=== PATIENT | female | born 1980 | race African-American/Black ===

== ENCOUNTER 2020-02-14 22:53 | Emergency (ER) | payer MEDICAID, SELFPAY ==
[2020-02-14 22:57] VITALS: BP 119/95; PULSE 106; RESP 22; TEMP 36.1; O2SAT 100
--- NOTE | 2020-02-14 23:04 | ED.ANXIETY ---
HPI - Anxiety General Chief Complaint: Anxiety Stated Complaint: panic attack Time Seen by Provider: 02/14/20 22:56 Source: patient Mode of arrival: ambulatory Limitations: no limitations History of Present Illness HPI narrative: Pt is a 39 y/o female who presents to the ED with c/o anxiety that started at 1500. Pt states she has a H/O anxiety and normally takes Lexapro. She notes that she has not been taking it because she has been having N/V/D. Although, she does note that she took it today. She reports ABD pain and palpitations that is consistent with her H/O anxiety. She reports chills, but denies fever, SI, or HI. Pt notes that she used to take Ativan and Xanax. complaint: anxiety Onset (ago): hour(s) (8) Symptoms: palpitations and other (ABD pain) Severity: similar to previous episodes History of similar episodes: Yes Relieving factors: nothing Associated symptoms: nausea/vomiting and other (chills, diarrhea, ABD pain, palpitations) Related Data Home Medications Medication Instructions Recorded Confirmed escitalopram oxalate 20 mg PO DAILY 09/30/19 09/30/19 Allergies Allergy/AdvReac Type Severity Reaction Status Date / Time latex Allergy Unknown RASH-CONDOM Verified 02/14/20 23:03 Review of Systems Review of Systems: All systems reviewed & are unremarkable except as noted in HPI and below Constitutional: Constitutional: Reports chills and Denies fever(s) Cardiovascular: Cardiovascular: Reports palpitations Gastrointestinal: Gastrointestinal: Reports abdominal pain, Reports diarrhea, Reports nausea and Reports vomiting Psychiatric: Psychiatric: Reports anxiety, Denies homicidal ideation and Denies suicidal ideation [facility] Social History Social History Smoking status: Never smoker Alcohol intake: current Gender identity (if verbalized by the patient): Female Exam Narrative: Exam Narrative: APPEARANCE: Anxious in appearance, resting in bed EYES: EOMI HEENT: Normocephalic, atraumatic, nares patent, oral mucosa dry no erythema or exudate posterior pharynx RESPIRATORY: No respiratory distress Clear to auscultation bilaterally with no rhonchi wheezing or rales. CARDIOVASCULAR: Regular rate and rhythm without murmurs rubs or gallops. ABDOMINAL: Soft, nontender, nondistended, no rebound or guarding MUSCULOSKELETAl: Moves all extremities. No clubbing, cyanosis or edema. NEURO: Awake and alert. Following commands, speech normal, no focal deficits SKIN:: Warm, dry. No rashes lesions or abrasions PSYCHIATRIC: Anxious in appearance, denies suicidal ideation, denies homicidal ideation Course Course Emergency Course: Patient states she is feeling much better at this time. Anxiety has resolved Discussed with patient results of workup and diagnosis. Discussed need for follow-up with primary care, proper use of medication, and reasons to return to the emergency department. Patient understands and agrees to current treatment plan Vital Signs Vital signs: Vital Signs Temperature 96.9 F L 02/14/20 22:57 Pulse Rate 106 H 02/14/20 22:57 Respiratory Rate 22 H 02/14/20 22:57 Blood Pressure 119/95 H 02/14/20 22:57 Pulse Oximetry 100 02/14/20 22:57 Temperature 96.9 F L 02/14/20 22:57 Pulse Rate 89 02/15/20 00:14 Respiratory Rate 16 02/15/20 00:14 Blood Pressure 117/63 02/15/20 00:14 Pulse Oximetry 100 02/15/20 00:14 MDM - Anxiety Lab Data Result diagrams: 02/14/20 23:36 02/14/20 23:36 Labs: Lab Results 02/14/20 02/14/20 02/14/20 Range/Units 23:36 23:36 23:36 WBC 6.3 (4.5-10.0) K/mm3 RBC 4.40 (4.2-5.4) M/mm3 Hgb 11.3 L (12.0-15.0) g/dL Hct 37.2 (37.0-47.0) % MCV 84.5 (80-100) fl MCH 25.7 L (26-34) pg MCHC 30.4 L (32-36) g/dl RDW 25.3 H (11.5-14.5) % Plt Count 358 (150-375) k/mm3 MPV 10.0 (7.4-10.4) fl Immature Gran % (Auto) 0.3 (0-0.5) % Ne
[2020-02-14] MEDS: LORAZEPAM INJ 2 MG/ML VIAL 1 MG IV PUSH (23:32)
[2020-02-14] MEDS: SODIUM CHLORIDE 0.9% IV 1,000 ML 999 ML IV CONT (23:32)
[2020-02-14] MEDS: ONDANSETRON INJ 4 MG/2 ML VIAL IV PUSH (23:32)
[2020-02-14 23:45] LABS: Basophils Percent Auto 0.3 % (0.2-1.2); Hematocrit 37.2 % (37.0-47.0); Hemoglobin 11.3 g/dL (12.0-15.0); Immature Granulocyte Absolute 0.02 K/mm3 (0.00-0.031); Immature Granulocyte Percent A 0.3 % (0-0.5); Lymphocytes Absolute Auto 0.69 K/mm3 (0.9-3.2); Mean Corpuscular HGB Conc 30.4 g/dl (32-36); Mean Corpuscular Hemoglobin 25.7 pg (26-34); Mean Corpuscular Volume 84.5 fl (80-100); Monocytes Absolute Auto 0.1 K/mm3 (0.1-0.6); Monocytes Percent Auto 2.1 % (2.6-8.5); Neutrophils Absolute Auto 5.4 K/mm3 (1.3-6.7); Neutrophils Percent Auto 86.3 % (45.5-73.1); Platelet Count Result 358 k/mm3 (150-375); Red Cell Distribution Width 25.3 % (11.5-14.5); White Blood Count 6.3 K/mm3 (4.5-10.0)
[2020-02-14 23:52] LABS: Add Urine Microscopic? YES; Appearance Urine Clear (Clear); Bilirubin Urine Negative (Negative); Blood Urine Negative (Negative); Color Urine Yellow (Yellow); Glucose Urine UA Negative (Negative); Ketones Urine 2+ mg/dL (Negative); Leukocyte Esterase Ur Negative LEU/UL (Negative); Mucus Urine Rare /lpf; Nitrate Urine Negative (Negative); Protein Urine 1+ mg/dL (Negative); RBC Urine 0-2 /hpf (0-2); Specific Grav Ur 1.017 (1.001-1.035); Squamous Epithelial Cell Urine Many /hpf (Few); Urobilinogen Urine Negative mg/dL (<2.0); WBC Urine 0-3 /hpf
[2020-02-15 00:04] LABS: Alanine Aminotransferase 13 U/L (4-35); Albumin Level 4.8 g/dL (3.5-5.1); Alkaline Phosphatase 57 U/L (38-126); Aspartate Amino Transferase 24 U/L (14-36); Bilirubin,Total 0.3 mg/dL (0.2-1.3); Blood Urea Nitrogen 6 mg/dL (7-17); Calcium 9.5 mg/dL (8.4-10.2); Carbon Dioxide 24 mmol/L (22-30); Chloride 102 mmol/L (98-107); Estimated CRCL calculation 101 ml/min; Estimated Glomerular Filt Rate > 60; Glucose 106 mg/dL (65-105); Lipase 36 U/L (23-300); Potassium 3.9 mmol/L (3.4-5.0); Sodium 137 mmol/L (137-145)
[2020-02-15] MEDS: SODIUM CHLORIDE 0.9% IV 1,000 ML 999 ML IV CONT (00:13)
[2020-02-15 00:14] VITALS: BP 117/63; PULSE 89; RESP 16; O2SAT 100
[2020-02-15 00:50] VITALS: BP 110/67; PULSE 98; RESP 17; TEMP 36.7; O2SAT 100
== END 2020-02-15 00:50 | disposition home or self-care (01) ==
PROVIDERS: Emergency Provider Emergency Medicine
DX: F41.9 Anxiety disorder, unspecified (principal); R11.2 Nausea with vomiting, unspecified
CPT/HCPCS: 36415; 80053; 81001; 81025; 83690; 85025; 96361; 96374; 96375; 99284; J2060; J2405; J7030

== ENCOUNTER 2020-08-18 06:11 | Emergency (ER) | payer OTHER, SELFPAY ==
--- NOTE | ~2020-08-18 | CT_ITS ---
EXAMINATION: CT abdomen pelvis w con DATE: 08/18/2020 08:55 INDICATION: Right flank and lower abdominal pain. Nausea. TECHNIQUE: Computed tomography (CT) of the abdomen and pelvis was performed with 100 cc Omnipaque 350 intravenous contrast. Automated exposure control and iterative reconstruction technique were employe d. Exam dose: 253.62 mGy-cm total exam DLP. COMPARISON: 09/30/2019 CT abdomen pelvis FINDINGS: The lung bases are clear. Normal heart size. No pericardial or pleural effusion. The liver, spleen, pancreas, and adrenal glands and kidneys appear normal. Normal caliber of the abdo alex aorta. No intraperitoneal or retroperitoneal or pelvic mass lesion or adenopathy or ascites. Normal appendix. No bowel obstruction, bowel wall thickening, pneumatosis or intraperitoneal free air . Uterine enlargement. There are multiple serosal fibroids, the largest measuring up to 4.7 cm dimensio n. There is an involuting peripherally enhancing approximately 2 cm left ovarian cyst. There is evidence of mild to moderate free fluid in the adnexal areas and cul-de-sac. The urinary bladder appears normal. Normal caliber of the abdominal aorta. No intraperitoneal or retroperitoneal or pelvic mass lesion or adenopathy or ascites. There is a fat-containing umbilical hernia. Included skeletal structures are unremarkable. IMPRESSION: Enlarged uterus, multiple serosal fibroids Involuting 2 cm left ovarian cyst with mild amount of free fluid in the adnexal areas and cul-de-sac Reviewed, dictated and finalized at [facility]. Reviewed, dictated and finalized at location B.
--- NOTE | ~2020-08-18 | XR_ITS ---
EXAMINATION: XR chest 2V DATE: 08/18/2020 08:23 INDICATION: Chest pain TECHNIQUE: PA and lateral views of the chest are obtained. COMPARISON: 01/05/2017 FINDINGS: The lungs are free of acute opacities. There is no pleural effusion or pneumothorax. The ca rdiomediastinal silhouette is normal. The visualized bones and soft tissues are unremarkable. IMPRESSION: 1. No acute cardiopulmonary abnormality. Reviewed, dictated and finalized at location A.
[2020-08-18 06:18] VITALS: BP 127/66; PULSE 79; RESP 16; TEMP 36.8; O2SAT 98
--- NOTE | 2020-08-18 06:30 | ECG_ITS ---
Measurements Intervals [place] Rate: 74 P: 60 [place]: 161 QRS: 29 QRSD: 80 T: 44 QT: 406 QTc: 451 Interpretive Statements SINUS RHYTHM BASELINE ARTIFACT- I, II, III, AVR, AVF NORMAL ECG Electronically Signed On 08-18-2020 7:00:35 CDT by Arias Singletary D.O.
[2020-08-18 06:42] LABS: Basophils Percent Auto 0.5 % (0.2-1.2); Eosinophils Absolute Auto 0.1 K/mm3 (0-0.3); Eosinophils Percent Auto 1.7 % (0-4.4); Hemoglobin 9.6 g/dL (12.0-15.0); Immature Granulocyte Absolute 0.01 K/mm3 (0.00-0.031); Immature Granulocyte Percent A 0.2 % (0-0.5); Lymphocytes Absolute Auto 1.47 K/mm3 (0.9-3.2); Lymphocytes Percent Auto 35.8 % (18.3-44.2); Mean Corpuscular Hemoglobin 29.9 pg (26-34); Mean Corpuscular Volume 93.5 fl (80-100); Mean Platelet Volume 11.1 fl (7.4-10.4); Monocytes Absolute Auto 0.1 K/mm3 (0.1-0.6); Monocytes Percent Auto 3.2 % (2.6-8.5); Neutrophils Absolute Auto 2.4 K/mm3 (1.3-6.7); Neutrophils Percent Auto 58.6 % (45.5-73.1); Platelet Count Result 372 k/mm3 (150-375); Red Blood Count 3.21 M/mm3 (4.2-5.4); Red Cell Distribution Width 22.9 % (11.5-14.5); White Blood Count 4.1 K/mm3 (4.5-10.0)
[2020-08-18 06:43] LABS: Add Urine Microscopic? NO; Appearance Urine Clear (Clear); Bilirubin Urine Negative (Negative); Blood Urine Negative (Negative); Color Urine Yellow (Yellow); Glucose Urine UA Negative (Negative); Ketones Urine Negative (Negative); Leukocyte Esterase Ur Negative LEU/UL (Negative); Nitrate Urine Negative (Negative); Protein Urine Negative (Negative); Specific Grav Ur 1.011 (1.001-1.035); Urobilinogen Urine Negative mg/dL (<2.0)
--- NOTE | 2020-08-18 06:57 | PC.NURSE ---
0645 Last from Xray comes to take patient for her chest xray, patient states I don't want that. I'm here for my reproductive system pain. Patient informed that she stated she was having cp and that was what the test was ordered for, patient still refused chest xray. ERP Dr. Oconnell notified.
[2020-08-18 07:02] LABS: Alanine Aminotransferase 15 U/L (4-35); Albumin Level 4.5 g/dL (3.5-5.1); Alkaline Phosphatase 48 U/L (38-126); Anion Gap 6 mmol/L (8-16); Aspartate Amino Transferase 29 U/L (14-36); Bilirubin,Total 0.4 mg/dL (0.2-1.3); Blood Urea Nitrogen 8 mg/dL (7-17); Carbon Dioxide 26 mmol/L (22-30); Chloride 107 mmol/L (98-107); Estimated Glomerular Filt Rate > 60; Glucose 110 mg/dL (65-105); Potassium 3.7 mmol/L (3.4-5.0); Sodium 139 mmol/L (137-145)
[2020-08-18 07:07] LABS: Partial Thromboplastin Time 27.9 SECONDS (22.3-36.8); Prothrombin Time 12.7 Seconds (11.1-14.7)
[2020-08-18 07:13] LABS: Troponin I 0.014 ng/mL (0.000-0.034)
[2020-08-18 07:33] LABS: Alanine Aminotransferase 15 U/L (4-35); Albumin Level 4.4 g/dL (3.5-5.1); Alkaline Phosphatase 48 U/L (38-126); Aspartate Amino Transferase 27 U/L (14-36); Bilirubin,Total 0.5 mg/dL (0.2-1.3); Lipase 85 U/L (23-300)
--- NOTE | 2020-08-18 07:36 | ED.CHESTPAIN ---
HPI - Chest Pain General Chief Complaint: Chest Pain Stated Complaint: lower abd & flank pain, de la o Time Seen by Provider: 08/18/20 07:09 History of Present Illness HPI narrative: She reports that she has been having problems in her reproductive area for awhile . She previously had an ovarian cyst removed. More recently she was seen by Dr. Lucas this past for a mass in her vaginal wall and vaginal discharge. She was prescribed Clindamycin cream, which she has not been able to pick-up yet. Additionally she states that she feels like these issues have begun causing problems in the other areas. She now has a headache, Sharp chest pain, and dyspnea on exertion. These have all been present for several days. She has not tried anything for her symptoms. Related Data Home Medications Medication Instructions Recorded Confirmed escitalopram oxalate 20 mg PO DAILY 09/30/19 09/30/19 Allergies Allergy/AdvReac Type Severity Reaction Status Date / Time latex Allergy Unknown RASH-CONDOM Verified 02/14/20 23:03 Review of Systems Review of Systems: All systems reviewed & are unremarkable except as noted in HPI and below Constitutional: Constitutional: Reports fatigue and Denies fever(s) ENT: Denies sore throat Cardiovascular: Cardiovascular: Reports chest pain and Denies radiating jaw, neck or arm pain Respiratory: Respiratory: Denies cough and Reports dyspnea Gastrointestinal: Gastrointestinal: Reports abdominal pain, Denies constipation, Denies diarrhea, Reports nausea and Denies vomiting Genitourinary: Genitourinary: Denies dysuria and Reports vaginal discharge Musculoskeletal: Musculoskeletal: Reports back pain Neurologic: Reports dizziness and Reports weakness PMFSH Past Medical History Medical History Anxiety Depression Ovarian cyst Surgical History Surgical History History of removal of ovarian cyst Family History Family History Father Diabetes mellitus Mother Diabetes mellitus Hypertension Grandparent Hypertension Social History Social History Smoking status: Never smoker Alcohol intake: current Gender identity (if verbalized by the patient): Female Exam Const: General: healthy appearing, no acute distress and alert Orientation/consciousness: patient oriented x3 HENMT: Head: normal to inspection Neck: Neck: normal visual inspection and no lymphadenopathy Chest: Chest palpation & inspection: no tenderness Resp: Effort & Inspection: normal respiratory effort Auscultation: clear to auscultation bilaterally, no rales, no rhonchi and no wheezes Cardio: Jugular venous distension: no JVD Rate: regular rate Rhythm: regular rhythm Heart sounds: no murmurs GI: Inspection: non-distended GI Palp: Yes Soft to palpation and No Tenderness to palpation present (GI) Other: Nontender Skin: General skin exam: normal color Neuro: General: patient oriented x3, moves all extremities, no focal motor deficits and CN's II-XI intact bilaterally Speech: normal speech Extrem: General: no edema Psych: Appearance: well kempt Affect: Anxious affect present Course Consultations Consultation #1: I discussed the patient with Dr. Lucas. He said that on exam she did have a mass adjacent to the uterus and he feels that the patient would benefit from an abdominal C. CT done and I called to update him with the results. He will follow-up with her in clinic on Tuesday to follow-up on the results. Vital Signs Vital signs: Vital Signs Temperature 36.8 C 08/18/20 06:18 Pulse Rate 79 08/18/20 06:18 Respiratory Rate 16 08/18/20 06:18 Blood Pressure 127/66 08/18/20 06:18 Pulse Oximetry 98 08/18/20 06:18 Temperature 36.8 C 08/18/20 06:18 Pulse Rate 67 08/18
[2020-08-18] MEDS: SODIUM CHLORIDE 0.9% IV 1,000 ML 999 ML IV CONT (08:14)
[2020-08-18] MEDS: KETOROLAC 30 MG/ML VIAL (*BKC) IV PUSH (08:14)
[2020-08-18 09:00] VITALS: BP 110/75; PULSE 67; RESP 18; O2SAT 99
[2020-08-18 10:10] LABS: Troponin I < 0.012 ng/mL (0.000-0.034)
== END 2020-08-18 10:34 | disposition home or self-care (01) ==
PROVIDERS: Emergency Medicine; Emergency Provider Emergency Medicine
DX: R07.9 Chest pain, unspecified (principal); D25.9 Leiomyoma of uterus, unspecified; N83.202 Unspecified ovarian cyst, left side
CPT/HCPCS: 36415; 71046; 74177; 80053; 80076; 81003; 81025; 82248; 83690; 84484; 85025; 85610; 85730; 93005; 96361; 96374; 99284; J1885; J7030; Q9967

== ENCOUNTER 2020-09-01 23:01 | Emergency (ER) | payer OTHER, SELFPAY ==
--- NOTE | ~2020-09-01 | XR_ITS ---
EXAMINATION: XR chest 2V EXAM DATE: 09/02/2020 00:02 INDICATION: Mid chest pain. TECHNIQUE: Frontal and lateral projections of the chest obtained and reviewed. Comparison is made to prior examination from 08/18/2020. FINDINGS: The lungs are clear. There are no pleural effusions. The cardiomediastinal silhouette is within normal limits. There is no pneumothorax suspected. The bones and soft tissues are unremarkab le. IMPRESSION: No acute cardiopulmonary findings. Reviewed, dictated and finalized at location G.
[2020-09-01 23:03] VITALS: BP 131/80; PULSE 115; RESP 17; TEMP 36.3; O2SAT 98
--- NOTE | 2020-09-01 23:21 | PC.NURSE ---
ON 09/01/2020 AT APPROX 2315, THIS PT APPROACHES THIS INTAKE NURSE AND ASKS HOW LONG SHE WILL HAVE TO WAIT. PT INFORMED THAT THE MAIN ED IS CURRENTLY FULL, AND THERE ARE A OTHER PEOPLE IN THE WAITING ROOM WELL WAITING TO BE SEEN. THIS INTAKE NURSE INFORMS PT THAT AN EXACT WAIT TIME CANNOT BE GIVEN. PT STATES SHE WILL BE WAITING ON THE BENCH IN THE BREEZEWAY TO THE ED ENTRANCE.
--- NOTE | 2020-09-01 23:35 | ECG_ITS ---
Measurements Intervals [place] Rate: 117 P: 50 NM: 156 QRS: 21 QRSD: 78 T: 50 QT: 337 QTc: 471 Interpretive Statements SINUS TACHYCARDIA FREQUENT VENTRICULAR PREMATURE COMPLEXES BASELINE ARTIFACT- II, III, AVF ABNORMAL ECG Electronically Signed On 09-02-2020 6:58:09 CDT by Arias Singletary D.O.
--- NOTE | 2020-09-01 23:35 | PC.NURSE ---
PT APPROACHED INTAKE NURSES DESK AGAIN AND STATES SHE IS NOW HAVING CP. CP PROTOCOL INITIATED IN [place].
--- NOTE | 2020-09-01 23:54 | PC.NURSE ---
PT TAKEN TO RADIOLOGY VIA ED W/C BY WIRE ANNEALERLeeann ALFRED AT THIS TIME.
[2020-09-01 23:56] LABS: Basophils Percent Auto 0.3 % (0.2-1.2); Eosinophils Percent Auto 0.1 % (0-4.4); Hematocrit 26.6 % (37.0-47.0); Hemoglobin 8.6 g/dL (12.0-15.0); Immature Granulocyte Absolute 0.02 K/mm3 (0.00-0.031); Immature Granulocyte Percent A 0.3 % (0-0.5); Lymphocytes Absolute Auto 1.42 K/mm3 (0.9-3.2); Mean Corpuscular HGB Conc 32.3 g/dl (32-36); Mean Corpuscular Hemoglobin 30.9 pg (26-34); Mean Corpuscular Volume 95.7 fl (80-100); Mean Platelet Volume 10.1 fl (7.4-10.4); Monocytes Absolute Auto 0.1 K/mm3 (0.1-0.6); Neutrophils Absolute Auto 5.5 K/mm3 (1.3-6.7); Neutrophils Percent Auto 77.3 % (45.5-73.1); Nucleated Red Blood Cells Perc 0.3 % (0.0-0.2); Platelet Count Result 430 k/mm3 (150-375); Red Blood Count 2.78 M/mm3 (4.2-5.4); White Blood Count 7.1 K/mm3 (4.5-10.0)
[2020-09-02 00:06] LABS: Prothrombin Time 12.9 Seconds (11.1-14.7)
[2020-09-02 00:07] LABS: Partial Thromboplastin Time 26.2 SECONDS (22.3-36.8)
[2020-09-02 00:08] LABS: Anion Gap 10 mmol/L (8-16); Blood Urea Nitrogen 8 mg/dL (7-17); Carbon Dioxide 26 mmol/L (22-30); Chloride 100 mmol/L (98-107); Estimated CRCL calculation 80 ml/min; Estimated Glomerular Filt Rate > 60; Glucose 127 mg/dL (65-105); Potassium 3.7 mmol/L (3.4-5.0); Sodium 136 mmol/L (137-145)
[2020-09-02 00:20] LABS: Troponin I < 0.012 ng/mL (0.000-0.034)
--- NOTE | 2020-09-02 02:00 | PC.NURSE ---
09/02/2020 AT 0159; PT CALLED TO HAVE VITAL SIGNS RETAKEN, PT DID NOT ANSWER, AND WAS NOT VISUALIZED IN ED WR OR BREEZEWAY BY THIS NURSE.
--- NOTE | 2020-09-02 02:21 | PC.NURSE ---
PT CALLED 3 TIMES IN ED WR TO BE TAKEN BACK TO ROOM IN MAIN ED. NO ANSWER BY THIS PT. PT BEING CHARTED A LWBS AT THIS TIME.
== END 2020-09-02 02:21 | disposition left against medical advice (07) ==
PROVIDERS: Emergency Provider General Practice; PCP Internal Medicine
DX: F41.0 Panic disorder [episodic paroxysmal anxiety] (principal)
CPT/HCPCS: 36415; 71046; 80048; 84484; 85025; 85610; 85730; 93005; 99199

== ENCOUNTER 2020-09-22 00:12 | Outpatient (CLI) | payer OTHER, SELFPAY ==
[2020-09-22 19:58] LABS: SARS-CoV-2 RNA PCR Negative
== END 2020-09-22 00:13 | disposition home or self-care (01) ==
LOC: ANHCOVIDDT 00:12
PROVIDERS: PCP Internal Medicine; Visit Provider Obstetrics & Gynecology
DX: Z01.812 Encounter for preprocedural laboratory examination (principal); Z20.828 Contact with and (suspected) exposure to other viral communicable diseases
CPT/HCPCS: 87635; C9803; U0003

== ENCOUNTER 2020-09-24 02:55 | Day surgery (SDC) | payer OTHER, SELFPAY ==
[2020-09-15 10:32] VITALS: BMI 22.8
--- NOTE | 2020-09-23 14:09 | WPDANESEPPF ---
Anes - Initial Pre Proc Eval Procedure: Operation Date: 09/24/20 09:00 Proposed Procedures p Excision Vaginal Cyst - Bandar Lucas MD Date/Time: 09/23/20 14:09 Surgeon: Bandar Lucas MD Pre Op Diagnosis: vaginal cyst Patient Data Age: 40 Gender: F Height: 1.65 m Weight: 62.14 kg Allergies Allergy/AdvReac Type Severity Reaction Status Date / Time latex Allergy Unknown RASH-CONDOM Verified 09/15/20 10:33 Home Medications Medication Instructions Recorded Confirmed Type escitalopram oxalate 20 mg PO DAILY 09/30/19 09/15/20 History Vitamin C 1 tablet PO 3XW 09/15/20 09/15/20 History iron 1 tablet PO 3XW 09/15/20 09/15/20 History vitamin E 1 cap PO 3XW 09/15/20 09/15/20 History Patient hx anesthesia problems: none Family hx anesthesia problems: none PMFSH Past Medical History Medical History (Updated 08/19/20 @ 00:00 by Eliu Edwards) Anxiety Depression Ovarian cyst Surgical History Surgical History History of removal of ovarian cyst Family History Family History Father Diabetes mellitus Mother Diabetes mellitus Hypertension Grandparent Hypertension Social History Social History Smoking status: Never smoker Alcohol intake: current Drinks per week: 2 Substance use: former Substance use type: marijuana Last use: 06/2020 Gender identity (if verbalized by the patient): Female Spiritual care concerns: No Anes - Eval Final PreProcedure Day of Procedure 09/23/20 14:09 Patient weight: normal Heart: regular rate and rhythm Lungs: clear to auscultation and normal air movement Airway: Mallampati scale class II Neurological: alert and oriented Last oral intake: >/= 8 hours ASA classification: II Emergent: no Anesthetic plan: proceed Anesthesia type and monitoring: general GIVS and LMA Informed Consent: The patient's anesthetic plan and its attendant risks and benefits were discussed with the patient/family/POA. Questions were solicited and answers provided to the satisfaction of the patient/family/POA.
[2020-09-24] VITALS (8 sets, daily range): BP systolic 95–110; BP diastolic 56–66; PULSE 62–73; RESP 12–17; TEMP 36.5; O2SAT 95–100
[2020-09-24] MEDS: ACETAMINOPHEN 500 MG TABLET 1000 MG PO (07:50)
[2020-09-24] MEDS: LACTATED RINGERS 1,000 ML 30 ML IV CONT ×2 (08:00→10:15)
[2020-09-24] MEDS: MIDAZOLAM HCL (*CRX) 2 MG/2 ML VIAL 1 MG IV PUSH (08:12)
--- NOTE | 2020-09-24 09:02 | WPDHPUPDATE1 ---
History and Physical Update Update Date/Time: 09/24/20 09:02 History and Physical has been reviewed, including an updated exam of the patient. There are NO changes in the patient's condition. Risks, benefits, and alternatives have been discussed and questions answered. Patient agrees to proceed with procedure.
[2020-09-24] MEDS: KETOROLAC 15 MG/ML VIAL (*BKC) IV PUSH (09:04)
[2020-09-24] MEDS: fentaNYL CITRATE INJ (*CRX) 100 MCG/2 ML VIAL 25 MCG IV PUSH ×4 (10:53→11:33)
--- NOTE | 2020-09-24 11:13 | SUR.PHASEI ---
DR. DICK HERE TO SPEAK TO PT. DR. DICK ATTEMPTED TO REACH MOM WITHOUT SUCCESS. WILL TRY TO REACH GRANDMOTHER.
[2020-09-24] MEDS: oxyCODONE HCL (*CRX) 5 MG TAB IR PO (12:25)
--- NOTE | 2020-09-24 12:58 | SUR.PHASEII ---
[id number] pt wanting explaination of procedure,called dr red and given explaination of procedure .pt no happy with explaination and plans to talk to dr red.
--- NOTE | 2020-09-25 09:27 | P.OP_ITS ---
Procedure Note - Detailed Date of procedure: 09/24/20 Pre-op diagnosis: vaginal cyst Uterine fibroids, pelvic pain, vulvar cyst Post-op diagnosis: same ( severe diverticulosis, partial rectal obstruction) Procedure performed: diagnostic laparoscopy, vulvar cyst resection , resection of peritoneal lesion Description of procedure: The patient was taken the operating room. She was prepped and draped in the dorsal lithotomy position after induction of general anesthesia. A 5 mm left upper quadrant incision was made in the abdominal skin with a scalpel. A 5 mm trocar was inserted the intra-abdominal cavity under direct visualization of the scope. A 5 mm left lower quadrant incision was made with the scalp on the abdominal skin and a 5 mm trocar was inserted the intra- abdominal cavity under direct visualization of the scope. A 5 mm infraumbilical incision was made with scalpel and a 5 mm trocar was inserted into the intra- abdominal cavity under direct visualization of the scope. pelvis and lower abdomen were examined in the below findings were noted. Some inclusion cyst in the peritoneal posterior cul-de-sac were resected with scissors. These were taken out to the trocars and sent for pathology evaluation. The pelvis was irrigated with copious amounts of normal saline. The pneumoperitoneum was reduced. The trocars were removed. the vaginal portion of the procedure was started. a lesion in the left introitus of the vagina was resected. The skin was incised over the left introitus posteriorly. It was about a 2.5 cm incision. Sharp and blunt dissection were then used to excise the cyst. The stalk of the cyst was clamped and cut After was ligated with 3 0 Vicryl. The skin was closed with interrupted 3 0 Vicryl. The procedure was terminated. The patient was taken recovery room stable condition. Sponge lap and needle counts were correct x2. Anesthesia: GETA Surgeon: Bandar Lucas MD Estimated blood loss (mL): 20 Drains: No Packing: No Complications: No immediate complications Condition: stable Disposition: PACU Findings: There was multiple large uterine fibroids. Three of which were projecting posteriorly directly into the rectum that. To obstruct the rectum partially. There was multiple diverticuli proximal to the posterior cul-de-sac fibroids which were very prominent. There was a left adnexal myoma. There were small cystic lesions in the posterior cul-de-sac. There was no vaginal cyst at the apex of the vagina. This was the posterior fibroids projecting into the vagina at the apex of the vagina.
== END 2020-09-24 13:04 | disposition home or self-care (01) ==
PROVIDERS: Visit Provider Obstetrics & Gynecology
PROC: (CPT 58662; principal; 2020-09-24 09:00)
DX: N90.7 Vulvar cyst (principal); R10.2 Pelvic and perineal pain; D25.9 Leiomyoma of uterus, unspecified; K66.8 Other specified disorders of peritoneum; F41.8 Other specified anxiety disorders; F12.90 Cannabis use, unspecified, uncomplicated
CPT/HCPCS: 58662; 11421; 88305; A9270; J0330; J1885; J2250; J2405; J2704; J3010; J7120

== ENCOUNTER 2020-10-20 17:06 | Emergency (ER) | payer OTHER, SELFPAY ==
[2020-10-20 17:09] VITALS: BP 113/58; PULSE 82; RESP 17; TEMP 36.2; O2SAT 100
--- NOTE | 2020-10-20 17:47 | ED.GENADULT ---
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 Patient denies any heavy vaginal bleeding discharge urinary symptoms. Patient presents with normal gait in no distress Related Data Home Medications Medication Instructions Recorded Confirmed escitalopram oxalate 20 mg PO DAILY 09/30/19 09/24/20 Vitamin C 1 tablet PO 3XW 09/15/20 09/24/20 iron 1 tablet PO 3XW 09/15/20 09/24/20 vitamin E 1 cap PO 3XW 09/15/20 09/24/20 Allergies Allergy/AdvReac Type Severity Reaction Status Date / Time latex Allergy Unknown RASH-CONDOM Verified 10/20/20 17:12 Review of Systems Review of Systems: All systems reviewed & are unremarkable except as noted in HPI and below PMFSH Past Medical History Medical History (Updated 10/20/20 @ 19:09 by Modesto Orozco PA-C) Anxiety Depression Ovarian cyst Surgical History Surgical History History of removal of ovarian cyst Family History Family History Father Diabetes mellitus Mother Diabetes mellitus Hypertension Grandparent Hypertension Social History Social History Smoking status: Never smoker Alcohol intake: current Drinks per week: 2 Substance use: former Substance use type: marijuana Last use: 06/2020 Gender identity (if verbalized by the patient): Female Spiritual care concerns: No Exam Narrative: Exam Narrative: GENERAL: Well-appearing, well-nourished, and in no acute distress. HEAD: Normocephalic, atraumatic. EYES: PERRLA and EOMI. ENT: Nares clear, no rhinorrhea or epistaxis. Mucous membranes moist. NECK: Supple. No adenopathy or masses. CHEST: Clear to auscultation. No respiratory distress. No wheezes rales or rhonchi HEART: Regular rate and rhythm. No murmur heard. Normal peripheral pulses. ABDOMEN: Soft, nontender, nondistended EXTREMITIES: Normal range of motion. No edema. SKIN: Warm, dry, no rash. NEURO: No focal deficits. Alert and oriented x3. Motor and sensory intact and symmetrical in the extremities. Cranial nerves II through XII grossly intact. Normal speech and gait PSYCH: Normal mood and affect. Course Course Emergency Course: Patient evaluated in the emergency department to include blood work which was unremarkable in the room in no distress hemodynamically stable felt appropriate for outpatient reevaluation Vital Signs Vital signs: Vital Signs Temperature 97.1 F L 10/20/20 17:09 Pulse Rate 82 10/20/20 17:09 Respiratory Rate 17 10/20/20 17:09 Blood Pressure 113/58 L 10/20/20 17:09 Pulse Oximetry 100 10/20/20 17:09 Temperature 97.1 F L 10/20/20 17:09 Pulse Rate 82 10/20/20 17:09 Respiratory Rate 17 10/20/20 17:09 Blood Pressure 113/58 L 10/20/20 17:09 Pulse Oximetry 100 10/20/20 17:09 Medical Decision Making [facility] Narrative Medical decision making narrative: Patient in the room at this time no distress no high risk changes in the blood work will be discharged home given primary care and neurology follow-up for her paresthesias likely secondary to her chronic anxiety however for ruling out other organic causes she will be referred for further testing
[2020-10-20 17:59] LABS: Add Urine Microscopic? YES; Appearance Urine Clear (Clear); Bilirubin Urine Negative (Negative); Blood Urine 1+ (Negative); Color Urine Straw (Yellow); Glucose Urine UA Negative (Negative); Ketones Urine Negative (Negative); Leukocyte Esterase Ur Negative LEU/UL (Negative); Mucus Urine Rare /lpf; Nitrate Urine Negative (Negative); Protein Urine Negative (Negative); Specific Grav Ur 1.008 (1.001-1.035); Squamous Epithelial Cell Urine Occasional /hpf (Few); Urobilinogen Urine Negative mg/dL (<2.0); WBC Urine 0-3 /hpf
[2020-10-20 18:12] LABS: Amphetamine Screen Urine Negative (Negative); Barbiturate Screen Urine Negative (Negative); Benzodiazepines Screen Urine Negative (Negative); Cannabinoid Screen Urine Negative (Negative); Cocaine Screen Urine Negative (Negative); Methadone Screen Urine Negative (Negative); Opiate Screen Urine Negative (Negative); Phencyclidine Screen Urine Negative (Negative)
[2020-10-20 18:13] LABS: Basophils Percent Auto 0.6 % (0.2-1.2); Eosinophils Absolute Auto 0.1 K/mm3 (0-0.3); Eosinophils Percent Auto 2.2 % (0-4.4); Hematocrit 33.7 % (37.0-47.0); Hemoglobin 10.7 g/dL (12.0-15.0); Lymphocytes Absolute Auto 1.15 K/mm3 (0.9-3.2); Lymphocytes Percent Auto 32.1 % (18.3-44.2); Mean Corpuscular HGB Conc 31.8 g/dl (32-36); Mean Corpuscular Hemoglobin 31.8 pg (26-34); Mean Corpuscular Volume 100.3 fl (80-100); Monocytes Absolute Auto 0.1 K/mm3 (0.1-0.6); Monocytes Percent Auto 1.4 % (2.6-8.5); Neutrophils Absolute Auto 2.3 K/mm3 (1.3-6.7); Neutrophils Percent Auto 63.7 % (45.5-73.1); Platelet Count Result 377 k/mm3 (150-375); Red Blood Count 3.36 M/mm3 (4.2-5.4); Red Cell Distribution Width 22.8 % (11.5-14.5); White Blood Count 3.6 K/mm3 (4.5-10.0)
[2020-10-20] MEDS: KETOROLAC (*BKC) 60 MG/2 ML VIAL IM (18:15)
[2020-10-20 18:18] LABS: Anion Gap 8 mmol/L (8-16); Blood Urea Nitrogen 10 mg/dL (7-17); Calcium 9.6 mg/dL (8.4-10.2); Carbon Dioxide 28 mmol/L (22-30); Chloride 105 mmol/L (98-107); Estimated CRCL calculation 77 ml/min; Estimated Glomerular Filt Rate > 60; Glucose 87 mg/dL (65-105); Potassium 3.8 mmol/L (3.4-5.0); Sodium 141 mmol/L (137-145)
[2020-10-20 18:35] LABS: Platelet Estimate Increased (Adequate)
[2020-10-20 18:36] LABS: Anisocytosis 3+ (NORMAL); Hypochromasia 1+ (NORMAL)
[2020-10-20 19:18] VITALS: BP 94/56; PULSE 67; RESP 16; TEMP 36.9; O2SAT 100
== END 2020-10-20 19:25 | disposition home or self-care (01) ==
PROVIDERS: Emergency Medicine Emergency Medical Services; Emergency Provider Emergency Medicine; PCP Obstetrics & Gynecology
DX: R20.2 Paresthesia of skin (principal); F41.9 Anxiety disorder, unspecified; F32.9 Major depressive disorder, single episode, unspecified
CPT/HCPCS: 36415; 80048; 80307; 81001; 81025; 85025; 96372; 99283; J1885

== ENCOUNTER 2020-11-12 08:41 | Emergency (ER) | payer OTHER, MEDICAID, SELFPAY ==
[2020-11-12] VITALS (7 sets, daily range): BP systolic 97–113; BP diastolic 64–83; PULSE 73–89; RESP 14–26; TEMP 36.8; O2SAT 98–100
[2020-11-12] MEDS: ONDANSETRON INJ 4 MG/2 ML VIAL IV PUSH (09:02)
[2020-11-12] MEDS: LORazepam INJ (*CRX) 2 MG/ML VIAL 1 MG IV PUSH (09:04)
[2020-11-12] MEDS: SODIUM CHLORIDE 0.9% IV 1,000 ML 999 ML IV CONT ×2 (10:01→11:28)
[2020-11-12] MEDS: FAMOTIDINE 20 MG/2 ML VIAL IV PUSH (10:01)
[2020-11-12 10:20] LABS: Eosinophils Percent Auto 0.5 % (0-4.4); Hematocrit 29.8 % (37.0-47.0); Hemoglobin 9.5 g/dL (12.0-15.0); Immature Granulocyte Absolute 0.02 K/mm3 (0.00-0.031); Immature Granulocyte Percent A 0.5 % (0-0.5); Lymphocytes Absolute Auto 0.75 K/mm3 (0.9-3.2); Lymphocytes Percent Auto 17.6 % (18.3-44.2); Mean Corpuscular HGB Conc 31.9 g/dl (32-36); Mean Corpuscular Hemoglobin 32.1 pg (26-34); Mean Corpuscular Volume 100.7 fl (80-100); Mean Platelet Volume 9.9 fl (7.4-10.4); Monocytes Absolute Auto 0.1 K/mm3 (0.1-0.6); Monocytes Percent Auto 1.2 % (2.6-8.5); Neutrophils Absolute Auto 3.4 K/mm3 (1.3-6.7); Neutrophils Percent Auto 80.2 % (45.5-73.1); Platelet Count Result 290 k/mm3 (150-375); Red Blood Count 2.96 M/mm3 (4.2-5.4); Red Cell Distribution Width 22.5 % (11.5-14.5); White Blood Count 4.3 K/mm3 (4.5-10.0)
[2020-11-12 10:29] LABS: Ovalocytes 2+ (NORMAL); Platelet Estimate Adequate (Adequate); Tear Drop Cells 1+ (NORMAL)
[2020-11-12 10:30] LABS: Anisocytosis 1+ (NORMAL)
[2020-11-12 10:35] LABS: Alanine Aminotransferase 33 U/L (4-35); Albumin Level 4.6 g/dL (3.5-5.1); Alkaline Phosphatase 54 U/L (38-126); Anion Gap 9 mmol/L (8-16); Aspartate Amino Transferase 60 U/L (14-36); Bilirubin,Total 0.9 mg/dL (0.2-1.3); Blood Urea Nitrogen 7 mg/dL (7-17); Calcium 9.5 mg/dL (8.4-10.2); Carbon Dioxide 27 mmol/L (22-30); Chloride 105 mmol/L (98-107); Estimated CRCL calculation 84 ml/min; Estimated Glomerular Filt Rate > 60; Glucose 93 mg/dL (65-105); Lipase 40 U/L (23-300); Potassium 4.2 mmol/L (3.4-5.0); Sodium 141 mmol/L (137-145)
[2020-11-12 11:02] LABS: Add Urine Microscopic? YES; Appearance Urine Cloudy (Clear); Bacteria Urine Trace /hpf; Bilirubin Urine Negative (Negative); Blood Urine Negative (Negative); Color Urine Yellow (Yellow); Glucose Urine UA Negative (Negative); Ketones Urine Negative (Negative); Leukocyte Esterase Ur Negative LEU/UL (Negative); Mucus Urine Rare /lpf; Nitrate Urine Negative (Negative); Protein Urine Negative (Negative); Squamous Epithelial Cell Urine Few /hpf (Few); Urobilinogen Urine Negative mg/dL (<2.0); WBC Urine 0-3 /hpf
--- NOTE | 2020-11-12 12:15 | ED.NAVMDI ---
HPI - Nausea/Vomiting/Diarrhea General Chief complaint: Nausea/Vomiting/Diarrhea Stated complaint: ANXIETY/N/V/BODY ACHES Time Seen by Provider: 11/12/20 09:06 Source: patient Mode of arrival: ambulatory Limitations: no limitations History of Present Illness HPI Narrative: Patient a 40-year-old female who presents to emergency department for evaluation of vomiting diarrhea runny nose for the last 2 days patient also notes panic attack this morning was brought in by EMS in acute anxious state patient notes vomiting diarrhea but denies sick contacts or other complaints lives at home by herself patient denies any rectal bleeding patient on arrival noting continued nausea Related Data Home Medications Medication Instructions Recorded Confirmed clindamycin phosphate VAGINAL 11/12/20 clonazepam 11/12/20 escitalopram oxalate mg 11/12/20 gabapentin 11/12/20 hydroxyzine HCl 11/12/20 Allergies Allergy/AdvReac Type Severity Reaction Status Date / Time latex Allergy Unknown RASH-CONDOM Verified 11/12/20 10:29 Review of Systems Review of Systems: All systems reviewed & are unremarkable except as noted in HPI and below PMFSH Past Medical History Medical History (Updated 11/12/20 @ 12:19 by Modesto Orozco PA-C) Anxiety Depression Ovarian cyst Surgical History Surgical History History of removal of ovarian cyst Family History Family History Father Diabetes mellitus Mother Diabetes mellitus Hypertension Grandparent Hypertension Social History Social History Smoking status: Never smoker Alcohol intake: current Drinks per week: 2 Substance use: former Substance use type: marijuana Last use: 06/2020 Gender identity (if verbalized by the patient): Female Spiritual care concerns: No Exam Narrative: Exam Narrative: GENERAL: Ill-appearing, well-nourished, and in no acute distress. HEAD: Normocephalic, atraumatic. EYES: PERRLA and EOMI. ENT: Nares clear, no rhinorrhea or epistaxis. Mucous membranes moist. NECK: Supple. No adenopathy or masses. CHEST: Clear to auscultation. No respiratory distress. No wheezes rales or rhonchi HEART: Regular rate and rhythm. No murmur heard. Normal peripheral pulses. ABDOMEN: Soft, no epigastric tenderness no rebound or guarding, nondistended EXTREMITIES: Normal range of motion. No edema. SKIN: Warm, dry, no rash. NEURO: No focal deficits. Alert and oriented x3. Cranial nerves II through XII grossly intact PSYCH: Normal mood and affect. Course Course Emergency Course: Patient in the room in no distress aware of case findings treatment plan diagnosis felt appropriate for outpatient reevaluation hydrated 2 L in the ER no vomiting diarrhea in the ER no high risk changes in the blood work minimal tenderness of the abdomen on exam will be treated symptomatically on an outpatient basis given reasons to return patient had improvement with medications and is tolerating p.o. intake Vital Signs Vital signs: Vital Signs Temperature 98.2 F 11/12/20 08:39 Pulse Rate 89 11/12/20 08:39 Respiratory Rate 14 11/12/20 08:39 Blood Pressure 109/72 11/12/20 08:39 Pulse Oximetry 100 11/12/20 08:39 Temperature 98.2 F 11/12/20 08:39 Pulse Rate 75 11/12/20 12:04 Respiratory Rate 18 11/12/20 12:04 Blood Pressure 100/64 11/12/20 12:04 Pulse Oximetry 98 11/12/20 12:04 MDM - Nausea/Vomiting/Diarrhea MDM Narrative Medical decision making narrative: Patient in the room in no distress with improved condition with medication patient is nontoxic-appearing no distress felt appropriate for outpatient reevaluation given reasons to return and felt appropriate to be managed on an outpatient basis on this time Differential Diagnosis Differential diagnosis: Likely food poisoning a
== END 2020-11-12 12:40 | disposition home or self-care (01) ==
PROVIDERS: Emergency Medicine Emergency Medical Services; Emergency Provider Emergency Medicine
DX: R10.9 Unspecified abdominal pain (principal); F41.9 Anxiety disorder, unspecified; F32.9 Major depressive disorder, single episode, unspecified
CPT/HCPCS: 36415; 80053; 81001; 81025; 83690; 85025; 96361; 96374; 96375; 99284; J2060; J2405; J7030

== ENCOUNTER 2020-11-20 16:27 | Emergency (ER) | payer OTHER, MEDICAID, SELFPAY ==
[2020-11-20 16:26] VITALS: BP 103/53; PULSE 92; RESP 20; TEMP 36.3; O2SAT 100
--- NOTE | 2020-11-20 16:45 | ED.ABDPAIN ---
HPI - Abdominal Pain General Chief Complaint: Abdominal Pain Stated Complaint: ABD PAIN/GONZALEZ Source: patient and EMS Limitations: no limitations History of Present Illness HPI narrative: Patient is a 40-year-old who presents with abdominal pain and nausea began today with history of anxiety similar occurrences in the past denies any acute illness or other complaints and otherwise resting comfortably on arrival in no distress patient has not had anything for symptoms Related Data Home Medications Medication Instructions Recorded Confirmed clindamycin phosphate VAGINAL 11/12/20 clonazepam 11/12/20 escitalopram oxalate mg 11/12/20 gabapentin 11/12/20 hydroxyzine HCl 11/12/20 Allergies Allergy/AdvReac Type Severity Reaction Status Date / Time latex Allergy Unknown RASH-CONDOM Verified 11/20/20 16:32 Review of Systems Review of Systems: All systems reviewed & are unremarkable except as noted in HPI and below PMFSH Past Medical History Medical History (Updated 11/20/20 @ 19:16 by Modesto Orozco PA-C) Anxiety Depression Ovarian cyst Surgical History Surgical History History of removal of ovarian cyst Family History Family History Father Diabetes mellitus Mother Diabetes mellitus Hypertension Grandparent Hypertension Social History Social History Smoking status: Never smoker Alcohol intake: current Drinks per week: 2 Substance use: former Substance use type: marijuana Last use: 06/2020 Gender identity (if verbalized by the patient): Female Spiritual care concerns: No Exam Narrative: Exam Narrative: GENERAL: Well-appearing, well-nourished, and in no acute distress. HEAD: Normocephalic, atraumatic. EYES: PERRLA and EOMI. ENT: Nares clear, no rhinorrhea or epistaxis. Mucous membranes moist. Oropharynx without tonsillar hypertrophy exudate or other lesions. NECK: Supple. No adenopathy or masses. No carotid bruits or JVD CHEST: Clear to auscultation. No respiratory distress. No wheezes rales or rhonchi HEART: Regular rate and rhythm. No murmur heard. Normal peripheral pulses. ABDOMEN: Soft, nontender, nondistended EXTREMITIES: Normal range of motion. No edema. SKIN: Warm, dry, no rash. NEURO: No focal deficits. Alert and oriented x3. PSYCH: Normal mood and affect. Course Course Emergency Course: Patient in the room in no distress aware of case findings treatment plan and diagnosis agreeing to follow with primary care and gynecology patient was hydrated will be sent home with medications is resting comfortably feeling improved at this time patient Vital Signs Vital signs: Vital Signs Temperature 97.4 F L 11/20/20 16:26 Pulse Rate 92 11/20/20 16:26 Respiratory Rate 20 11/20/20 16:26 Blood Pressure 103/53 L 11/20/20 16:26 Pulse Oximetry 100 11/20/20 16:26 Temperature 97.4 F L 11/20/20 16:26 Pulse Rate 72 11/20/20 18:21 Respiratory Rate 20 11/20/20 18:21 Blood Pressure 101/55 L 11/20/20 18:21 Pulse Oximetry 100 11/20/20 18:21 MDM - Abdominal Pain MDM Narrative Medical decision making narrative: Patient with abdominal pain and anxiety will be discharged home for further evaluation by primary care and GI and gynecology patient felt appropriate for outpatient reevaluation afebrile nontoxic-appearing no distress without emesis Differential Diagnosis Differential diagnosis: Likely abdominal pain, acute appendicitis, calculus of kidney, constipation, diverticulitis, endometriosis, gastroenteritis, pancreatitis and small bowel obstruction Lab Data Result diagrams: 11/20/20 17:44 11/20/20 17:44 Labs: Lab Results 11/20/20 11/20/20 11/20/20 Range/Units 17:44 17:44 17:44 WBC 2.7 L (4.5-10.0) K/mm3 RBC 2.55 L (4.2-5.4) M/mm3 Hgb
[2020-11-20] MEDS: SODIUM CHLORIDE 0.9% IV 1,000 ML 999 ML IV CONT ×2 (16:49→18:35)
[2020-11-20] MEDS: ONDANSETRON INJ 4 MG/2 ML VIAL IV PUSH (16:50)
[2020-11-20] MEDS: LORazepam INJ (*CRX) 2 MG/ML VIAL 1 MG IV PUSH (16:50)
[2020-11-20] MEDS: FAMOTIDINE 20 MG/2 ML VIAL IV PUSH (16:50)
[2020-11-20 17:53] LABS: Basophils Percent Auto 0.4 % (0.2-1.2); Eosinophils Percent Auto 0.4 % (0-4.4); Hematocrit 26.1 % (37.0-47.0); Hemoglobin 8.4 g/dL (12.0-15.0); Immature Granulocyte Absolute 0.04 K/mm3 (0.00-0.031); Immature Granulocyte Percent A 1.5 % (0-0.5); Immature Platelet Fraction Pct 6.4 % (0.9-11.2); Lymphocytes Absolute Auto 0.93 K/mm3 (0.9-3.2); Lymphocytes Percent Auto 34.8 % (18.3-44.2); Mean Corpuscular HGB Conc 32.2 g/dl (32-36); Mean Corpuscular Hemoglobin 32.9 pg (26-34); Mean Corpuscular Volume 102.4 fl (80-100); Monocytes Absolute Auto 0.1 K/mm3 (0.1-0.6); Neutrophils Absolute Auto 1.6 K/mm3 (1.3-6.7); Neutrophils Percent Auto 59.9 % (45.5-73.1); Nucleated Red Blood Cells Perc 0.7 % (0.0-0.2); Platelet Count Result 214 k/mm3 (150-375); Red Blood Count 2.55 M/mm3 (4.2-5.4); Red Cell Distribution Width 21.3 % (11.5-14.5); White Blood Count 2.7 K/mm3 (4.5-10.0)
[2020-11-20 17:57] LABS: Add Urine Microscopic? YES; Appearance Urine Clear (Clear); Bilirubin Urine Negative (Negative); Blood Urine 3+ (Negative); Color Urine Yellow (Yellow); Glucose Urine UA Negative (Negative); Ketones Urine 2+ mg/dL (Negative); Leukocyte Esterase Ur Trace LEU/UL (Negative); Mucus Urine Few /lpf; Nitrate Urine Negative (Negative); Protein Urine 1+ mg/dL (Negative); RBC Urine >75 /hpf (0-2); Specific Grav Ur 1.028 (1.001-1.035); Squamous Epithelial Cell Urine Rare /hpf (Few); Urobilinogen Urine Negative mg/dL (<2.0)
[2020-11-20 18:04] LABS: Alanine Aminotransferase 31 U/L (4-35); Albumin Level 4.8 g/dL (3.5-5.1); Alkaline Phosphatase 57 U/L (38-126); Anion Gap 8 mmol/L (8-16); Aspartate Amino Transferase 59 U/L (14-36); Bilirubin,Total 1.1 mg/dL (0.2-1.3); Blood Urea Nitrogen 11 mg/dL (7-17); Calcium 9.1 mg/dL (8.4-10.2); Carbon Dioxide 28 mmol/L (22-30); Chloride 103 mmol/L (98-107); Estimated CRCL calculation 78 ml/min; Estimated Glomerular Filt Rate > 60; Glucose 89 mg/dL (65-105); Lipase 100 U/L (23-300); Potassium 3.5 mmol/L (3.4-5.0); Sodium 139 mmol/L (137-145)
[2020-11-20 18:21] VITALS: BP 101/55; PULSE 72; RESP 20; O2SAT 100
[2020-11-20 19:30] VITALS: BP 103/59; PULSE 72; RESP 16; O2SAT 100
== END 2020-11-20 19:35 | disposition home or self-care (01) ==
PROVIDERS: Emergency Medicine Emergency Medical Services; Emergency Provider Emergency Medicine
DX: R10.9 Unspecified abdominal pain (principal); F41.9 Anxiety disorder, unspecified; F32.9 Major depressive disorder, single episode, unspecified
CPT/HCPCS: 36415; 80053; 81001; 81025; 83690; 85025; 85055; 87077; 87086; 87088; 96361; 96374; 96375; 99284; J2060; J2405; J7030

== ENCOUNTER 2020-11-25 13:58 | Emergency (ER) | payer MEDICAID, SELFPAY ==
[2020-11-25 13:57] VITALS: BP 123/81; PULSE 92; RESP 16; O2SAT 100
--- NOTE | 2020-11-25 14:06 | ED.GENADULT ---
HPI - General Adult General Chief complaint: Unspecified Stated complaint: left side pain Source: patient History of Present Illness HPI narrative: Patient is a 40 y/o female complaining of left side body pain including both her left arm and left leg for at least 1 month. She describes her pain as aching and sharp. She rates her pain as 8/10. She is able to move all 4 extremities and ambulate without difficulty. There is no alleviating or exacerbating factor. She also has subjective bilateral foot swelling. She states that anxiety is making her swelling worse. Related Data Home Medications Medication Instructions Recorded Confirmed clindamycin phosphate VAGINAL 11/12/20 clonazepam 11/12/20 escitalopram oxalate mg 11/12/20 gabapentin 11/12/20 hydroxyzine HCl 11/12/20 Allergies Allergy/AdvReac Type Severity Reaction Status Date / Time latex Allergy Unknown RASH-CONDOM Verified 11/20/20 16:32 Review of Systems Constitutional: Constitutional: Denies chills, Denies fever(s), Denies headache(s) and Denies weakness Eyes: Eyes: Denies blurry vision ENT: Denies headache(s) and Denies neck pain Cardiovascular: Cardiovascular: Denies chest pain and Denies dyspnea Respiratory: Respiratory: Denies cough and Denies dyspnea Gastrointestinal: Gastrointestinal: Denies abdominal pain, Denies diarrhea, Denies nausea and Denies vomiting Genitourinary: Genitourinary: Denies hematuria and Denies dysuria Musculoskeletal: Musculoskeletal: Reports as per HPI, Denies back pain, Reports myalgias and Denies neck pain Comments: feet swelling Neurologic: Denies headache(s) and Denies weakness [facility] Past Medical History Medical History (Updated 11/26/20 @ 00:00 by [facility]) Anxiety Depression Ovarian cyst Surgical History Surgical History History of removal of ovarian cyst Family History Family History Father Diabetes mellitus Mother Diabetes mellitus Hypertension Grandparent Hypertension Social History Social History Smoking status: Never smoker Alcohol intake: current Drinks per week: 2 Substance use: former Substance use type: marijuana Last use: 06/2020 Gender identity (if verbalized by the patient): Female Spiritual care concerns: No Exam Const: General: no acute distress and well developed Orientation/consciousness: oriented to person, oriented to place, oriented to time and patient oriented x3 HENMT: Head: normocephalic Ears: external ears normal General nose exam: Normal external nose present Eyes: General: appearance normal, both eyes and all related structures Conjunctivae: conjunctivae normal Neck: Neck: normal visual inspection and full ROM Chest: Chest palpation & inspection: normal inspection of the chest and no tenderness Resp: Effort & Inspection: normal respiratory effort Auscultation: clear to auscultation bilaterally Cardio: Rate: regular rate Rhythm: regular rhythm GI: GI Palp: No abdominal tenderness and Yes Soft to palpation Skin: General skin exam: normal color and turgor normal Neuro: General: oriented to person, oriented to place, oriented to time and patient oriented x3 Cognition (Neuro): normal cognition Extrem: General: normal to inspection, full ROM and no pedal edema Psych: Appearance: grossly normal Mental Status: mental status grossly normal Affect: normal affect Course Vital Signs Vital signs: Vital Signs Pulse Rate 92 11/25/20 13:57 Respiratory Rate 16 11/25/20 13:57 Blood Pressure 123/81 11/25/20 13:57 Pulse Oximetry 100 11/25/20 13:57 Pulse Rate 75 11/25/20 16:46 Respiratory Rate 11 L 11/25/20 16:46 Blood Pressure 114/77 11/25/20 16:46 Pulse Oximetry 99 11/25/20 16:46 Medical Decision Making Vital Signs Vital Signs: Vital Sign
[2020-11-25 14:37] LABS: Basophils Percent Auto 0.3 % (0.2-1.2); Eosinophils Percent Auto 1.1 % (0-4.4); Hematocrit 26.3 % (37.0-47.0); Hemoglobin 8.4 g/dL (12.0-15.0); Immature Granulocyte Absolute 0.05 K/mm3 (0.00-0.031); Immature Granulocyte Percent A 1.4 % (0-0.5); Lymphocytes Absolute Auto 0.91 K/mm3 (0.9-3.2); Lymphocytes Percent Auto 24.6 % (18.3-44.2); Mean Corpuscular HGB Conc 31.9 g/dl (32-36); Mean Corpuscular Hemoglobin 33.2 pg (26-34); Mean Platelet Volume 12.7 fl (7.4-10.4); Monocytes Absolute Auto 0.1 K/mm3 (0.1-0.6); Monocytes Percent Auto 1.6 % (2.6-8.5); Neutrophils Absolute Auto 2.6 K/mm3 (1.3-6.7); Nucleated Red Blood Cells Perc 0.8 % (0.0-0.2); Platelet Count Result 335 k/mm3 (150-375); Red Blood Count 2.53 M/mm3 (4.2-5.4); Red Cell Distribution Width 21.6 % (11.5-14.5); White Blood Count 3.7 K/mm3 (4.5-10.0)
[2020-11-25 14:40] LABS: Add Urine Microscopic? YES; Appearance Urine Clear (Clear); Bilirubin Urine Negative (Negative); Blood Urine 2+ (Negative); Color Urine Yellow (Yellow); Glucose Urine UA Negative (Negative); Ketones Urine Negative (Negative); Leukocyte Esterase Ur Negative LEU/UL (Negative); Mucus Urine Rare /lpf; Nitrate Urine Negative (Negative); Protein Urine Negative (Negative); RBC Urine 0-2 /hpf (0-2); Specific Grav Ur 1.011 (1.001-1.035); Squamous Epithelial Cell Urine Moderate /hpf (Few); Urobilinogen Urine Negative mg/dL (<2.0); WBC Urine 0-3 /hpf
[2020-11-25 14:47] VITALS: PULSE 72
[2020-11-25 14:50] LABS: Anisocytosis 1+ (NORMAL); Microcytosis 1+ (NORMAL); Ovalocytes 1+ (NORMAL); Platelet Estimate Adequate (Adequate); Poikilocytosis 1+ (NORMAL)
[2020-11-25 14:51] LABS: Atypical Lymphocytes Present
[2020-11-25 14:52] LABS: Alanine Aminotransferase 23 U/L (4-35); Albumin Level 4.5 g/dL (3.5-5.1); Alkaline Phosphatase 49 U/L (38-126); Anion Gap 6 mmol/L (8-16); Aspartate Amino Transferase 60 U/L (14-36); Blood Urea Nitrogen 7 mg/dL (7-17); Calcium 9.2 mg/dL (8.4-10.2); Carbon Dioxide 30 mmol/L (22-30); Chloride 104 mmol/L (98-107); Estimated CRCL calculation 74 ml/min; Estimated Glomerular Filt Rate > 60; Glucose 100 mg/dL (65-105); Potassium 3.3 mmol/L (3.4-5.0); Sodium 140 mmol/L (137-145)
[2020-11-25 15:04] VITALS: BP 104/56; PULSE 70; RESP 18; O2SAT 100
[2020-11-25 16:00] VITALS: BP 99/52; PULSE 74; RESP 19; O2SAT 99
[2020-11-25] MEDS: POTASSIUM CHLORIDE 20 MEQ TABLET PO (16:00)
[2020-11-25] MEDS: KETOROLAC 30 MG/ML VIAL (*BKC) IV PUSH (16:26)
[2020-11-25] MEDS: SODIUM CHLORIDE 0.9% IV 1,000 ML 999 ML IV CONT (16:26)
[2020-11-25 16:46] VITALS: BP 114/77; PULSE 75; RESP 11; O2SAT 99
== END 2020-11-25 17:07 | disposition home or self-care (01) ==
PROVIDERS: Emergency Provider Emergency Medicine
DX: E87.6 Hypokalemia (principal); M79.10 Myalgia, unspecified site; F41.9 Anxiety disorder, unspecified; F32.9 Major depressive disorder, single episode, unspecified
CPT/HCPCS: 36415; 80053; 81001; 81025; 85025; 96360; 96372; 99284; A9270; J1885; J7030

== ENCOUNTER 2020-12-10 08:28 | Outpatient (CLI) | payer MEDICAID, SELFPAY ==
--- NOTE | 2020-12-10 12:00 | NEURO_ITS ---
Impression: # Complains of numbness of hands and feet. # Early sensory neuropathy involving lower extremities. # Normal needle/EMG exam. # Clinical correlation recommended. Nerve Conduction Studies Anti Sensory Summary Table Stim Site NR Peak (ms) P-T Amp (?V) Site1 Site2 Delta-P (ms) Dist (cm) Devon (m/s) Left Median Anti Sensory (2-3nd Digit) Wrist 3.3 92.7 Wrist 2-3nd Digit 3.3 14.0 42 Wrist 3.3 92.1 Wrist 2-3nd Digit 3.3 14.0 42 Right Median Anti Sensory (2-3nd Digit) Wrist 3.3 71.1 Wrist 2-3nd Digit 3.3 14.0 42 Wrist 3.4 56.4 Wrist 2-3nd Digit 3.3 14.0 42 Left Radial Anti Sensory (Base 1st Digit) Wrist 2.1 28.0 Wrist Base 1st Digit 2.1 0.0 Right Radial Anti Sensory (Base 1st Digit) Wrist 2.8 6.9 Wrist Base 1st Digit 2.8 0.0 Left Sup Fibular Anti Sensory (Ant Lat Mall) 14 cm 4.4 11.5 14 cm Ant Lat Mall 4.4 16.0 36 Right Sup Fibular Anti Sensory (Ant Lat Mall) 14 cm 4.0 13.9 14 cm Ant Lat Mall 4.0 16.0 40 Left Sural Anti Sensory (Lat Mall) Calf 4.6 29.8 Calf Lat Mall 4.6 16.0 35 Right Sural Anti Sensory (Lat Mall) Calf 5.3 9.7 Calf Lat Mall 5.3 18.0 34 Left Ulnar Anti Sensory (5th Digit) Wrist 3.0 55.3 Wrist 5th Digit 3.0 14.0 47 Right Ulnar Anti Sensory (5th Digit) Wrist 2.9 91.4 Wrist 5th Digit 2.9 14.0 48 Motor Summary Table Stim Site NR Onset (ms) O-P Amp (mV) Site1 Site2 Delta-0 (ms) Dist (cm) Devon (m/s) Left Median Motor (Abd Poll Brev) Wrist 3.5 7.0 Elbow Wrist 4.9 28.0 57 Elbow 8.4 5.2 Right Median Motor (Abd Poll Brev) Wrist 3.8 6.9 Elbow Wrist 5.4 29.0 54 Elbow 9.2 5.0 Left Peroneal Motor (Vastus Med) Ankle 4.5 5.5 Popit Ankle 9.5 42.0 44 Popit 14.0 4.9 Right Peroneal Motor (Vastus Med) Ankle 4.8 5.8 Popit Ankle 8.7 38.0 44 Popit 13.5 4.4 Left Tibial Motor (Abd Pacheco Brev) Ankle 5.0 5.9 Knee Ankle 10.2 43.0 42 Knee 15.2 4.1 Right Tibial Motor (Abd Pacheco Brev) Ankle 4.6 2.6 Knee Ankle 10.1 43.0 43 Knee 14.7 1.7 Left Ulnar Motor (Abd Dig Minimi) Wrist 3.0 5.4 A Elbow Wrist 5.3 30.0 57 A Elbow 8.3 4.9 Right Ulnar Motor (Abd Dig Minimi) Wrist 2.9 4.9 A Elbow Wrist 5.3 29.0 55 A Elbow 8.2 4.1 F Wave Studies NR F-Lat (ms) L-R F-Lat (ms) Left Median (Mrkrs) (Abd Poll Brev) 28.15 0.76 Right Median (Mrkrs) (Abd Poll Brev) 28.91 0.76 Left Peroneal (Mrkrs) (EDB) 50.88 1.29 Right Peroneal (Mrkrs) (EDB) 49.59 1.29 Left Tibial (Mrkrs) (Abd Hallucis) 51.70 2.70 Right Tibial (Mrkrs) (Abd Hallucis) 49.01 2.70 Left Ulnar (Mrkrs) (Abd Dig Min) 28.84 0.37 Right Ulnar (Mrkrs) (Abd Dig Min) 29.21 0.37 EMG Side Muscle Nerve Root Ins Act Fibs Amp Dur Recrt Comment Right 1stDorInt Ulnar C8-T1 Nml Nml Nml Nml Nml Right Ext Indicis Radial (Post Int) C7-8 Nml Nml Nml Nml Nml Right Ext Digitorum Radial (Post Int) C7-8 Nml Nml Nml Nml Nml Right BrachioRad Radial C5-6 Nml Nml Nml Nml Nml Right PronatorTeres Median C6-7 Nml Nml Nml Nml Nml Right Abd Poll Brev Median C8-T1 Nml Nml Nml Nml Nml Right AntTibialis Dp Br Fibular L4-5 Nml Nml Nml Nml Nml Right Gastroc Tibial S1-2 Nml Nml Nml Nml Nml
== END 2020-12-10 08:29 | disposition home or self-care (01) ==
PROVIDERS: Visit Provider Psychiatry & Neurology Neurology
DX: R20.2 Paresthesia of skin (principal)
CPT/HCPCS: 95886; 95913

== ENCOUNTER 2020-12-14 04:35 | Emergency (ER) | payer MEDICAID, SELFPAY ==
[2020-12-14] VITALS (14 sets, daily range): BP systolic 103–114; BP diastolic 69–91; PULSE 95; RESP 18; TEMP 37.2; O2SAT 93–100
[2020-12-14] MEDS: KETOROLAC 30 MG/ML VIAL (*BKC) IV PUSH (05:26)
--- NOTE | 2020-12-14 05:28 | ED.GENADULT ---
HPI - General Adult General Chief complaint: Extremity Problem,Nontraumatic Stated complaint: bilateral leg pain History of Present Illness HPI narrative: Patient is a 40-year-old female who presents to the ER with reports of aching in her legs. Reports she woke up from sleep tonight and her pain was increased. She has been dealing with this pain for several months. She is recently had an EMG study performed by Dr. Gunderson. Results in the computer show that it seems to be normal but there was some concern for lower extremity neuropathy. Patient has a prescription for gabapentin that she has not been taking. She reports she has taken some Tylenol and ibuprofen. She cannot describe what makes her pain better or worse. She reports she saw her PCP yesterday who had ordered an outpatient venous Doppler of her lower extremities which was read as negative and that she did not have a blood clot. Said no trauma to her legs. Is not particularly associated with any sort of back pain. She does endorse some mild low back pain has been ongoing for over a year and is worse on the right side as opposed to the left. There is no sharp or shooting or electrical pains going down the leg. No urinary symptoms. Related Data Home Medications Medication Instructions Recorded Confirmed clindamycin phosphate VAGINAL 11/12/20 clonazepam 11/12/20 escitalopram oxalate mg 11/12/20 gabapentin 11/12/20 hydroxyzine HCl 11/12/20 Allergies Allergy/AdvReac Type Severity Reaction Status Date / Time latex Allergy Unknown RASH-CONDOM Verified 11/20/20 16:32 Review of Systems Constitutional: Constitutional: Denies chills and Denies fever(s) Musculoskeletal: Musculoskeletal: Denies arthralgias and Denies muscle cramps Neurologic: Denies focal weakness and Reports numbness (And burning) [facility] Past Medical History Medical History (Updated 12/14/20 @ 06:40 by Jeffery Horton MD) Anxiety Depression Ovarian cyst Surgical History Surgical History History of removal of ovarian cyst Family History Family History Father Diabetes mellitus Mother Diabetes mellitus Hypertension Grandparent Hypertension Social History Social History Smoking status: Never smoker Alcohol intake: current Drinks per week: 2 Substance use: former Substance use type: marijuana Last use: 06/2020 Gender identity (if verbalized by the patient): Female Spiritual care concerns: No Exam Narrative: Exam Narrative: GENERAL: Well-appearing, well-nourished, and in no acute distress. HEAD: Normocephalic, atraumatic. CHEST: Clear to auscultation. No respiratory distress. HEART: Regular rate and rhythm. Normal peripheral pulses. EXTREMITIES: Normal range of motion. No edema. Normal perfusion to the lower extremities. No sharp or soft touch deficit. Back: No midline tenderness thoracic or lumbar spine. No paraspinal muscular tenderness. : Normal external genitalia. Small amount of old blood at the inferior aspect of the vagina at the introitus. Surgical excision sites from the cyst looks normal over by the left labia without evidence of bleeding. Bleeding seems to be menstruation. Internal exam deferred. SKIN: Warm, dry, no rash. NEURO: Alert and oriented x3. PSYCH: Mildly tearful with normal thought content. Course Reevaluation(s) Reevaluation #1: Patient now requesting to have some eye come look at her vagina where she had a cyst removed from her vulva. Reports she began having some bleeding from where the surgery site was yesterday. No pain. No inflammation. Date: 12/14/20 Time: 05:38 Reevaluation #2: After initial HPI patient basically cried for the last 80% of her visit. She was given some Ativan for anxiousness. Patient seems to have real barriers to healthcare due to her mental h
[2020-12-14 05:36] LABS: Basophils Percent Auto 0.3 % (0.2-1.2); Eosinophils Percent Auto 1.4 % (0-4.4); Hemoglobin 7.3 g/dL (12.0-15.0); Immature Granulocyte Absolute 0.06 K/mm3 (0.00-0.031); Immature Granulocyte Percent A 2.1 % (0-0.5); Immature Platelet Fraction Pct 4.7 % (0.9-11.2); Lymphocytes Absolute Auto 1.23 K/mm3 (0.9-3.2); Lymphocytes Percent Auto 42.7 % (18.3-44.2); Mean Corpuscular HGB Conc 33.2 g/dl (32-36); Mean Corpuscular Hemoglobin 33.3 pg (26-34); Mean Corpuscular Volume 100.5 fl (80-100); Monocytes Absolute Auto 0.1 K/mm3 (0.1-0.6); Monocytes Percent Auto 3.5 % (2.6-8.5); Neutrophils Absolute Auto 1.4 K/mm3 (1.3-6.7); Nucleated Red Blood Cells Absolute Auto 0.1 K/mm3 (0.0-0.012); Nucleated Red Blood Cells Perc 2.1 % (0.0-0.2); Platelet Count Result 176 k/mm3 (150-375); Red Blood Count 2.19 M/mm3 (4.2-5.4); Red Cell Distribution Width 22.3 % (11.5-14.5); White Blood Count 2.9 K/mm3 (4.5-10.0)
[2020-12-14 05:48] LABS: Anion Gap 5 mmol/L (8-16); Blood Urea Nitrogen 9 mg/dL (7-17); Calcium 9.5 mg/dL (8.4-10.2); Carbon Dioxide 27 mmol/L (22-30); Chloride 107 mmol/L (98-107); Creatine Kinase 36 U/L (30-135); Estimated CRCL calculation 96 ml/min; Estimated Glomerular Filt Rate > 60; Glucose 86 mg/dL (65-105); Magnesium 1.9 mg/dL (1.6-2.3); Sodium 139 mmol/L (137-145)
[2020-12-14 06:11] LABS: Ovalocytes 1+ (NORMAL); Platelet Estimate Adequate (Adequate)
[2020-12-14] MEDS: LORazepam INJ (*CRX) 2 MG/ML VIAL 0.5 MG IV PUSH (06:19)
--- NOTE | 2020-12-14 07:09 | PC.NURSE ---
At discharge, attempted to educate pt on discharge, medication, and follow up instructions. pt was not interested in participating with discharge screaming that she wanted to see the doctor because no one even looked at her hemorrhoid. I explained to the pt that the doctor had examined her and addressed all of her multitude of complaints. I then tried to continue with discharge instructions and the pt yelled that she was done talking to me. I asked the pt if she needed any help getting dressed or assistance out of the ED and pt stated, oh, now you want to help me. pt refused to sign discharge paperwork.
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
== END 2020-12-14 07:13 | disposition home or self-care (01) ==
PROVIDERS: Emergency Provider Emergency Medicine
DX: D64.9 Anemia, unspecified (principal); M79.605 Pain in left leg; M79.604 Pain in right leg; F41.9 Anxiety disorder, unspecified; F32.9 Major depressive disorder, single episode, unspecified; D25.9 Leiomyoma of uterus, unspecified
CPT/HCPCS: 36415; 80048; 82550; 83735; 85025; 85055; 96374; 96375; 99284; J1885; J2060